=== PATIENT | male | born 1965 ===

== ENCOUNTER 2018-02-06 07:46 | Outpatient (CLI) | payer OTHER ==
--- NOTE | 2018-02-06 11:52 | Ultrasound Report ---
ULTRASOUND TESTICULAR DOPPLER COMPLETE History: Mass in right inguinal area, pain. Technique: Trans-scrotal ultrasound with spectral doppler interrogation. Findings: Targeted ultrasound was performed in the right inguinal area as well as the scrotum. Within the right inguinal area, there is suggestion of prominent subcutaneous fat which may represent a right inguinal hernia containing fat. No bowel loops with peristalsis is identified. Both testes and epididymides are normal size, contour and echotexture. No hydrocele or varicocele. No mass or pathologic calcifications. Doppler interrogation depicts symmetric arterial flow to both testes. IMPRESSION: Unremarkable testicular ultrasound. Right inguinal hernia containing fat? No bowel loops are appreciated within the right inguinal canal or right side of the scrotum.
== END 2018-02-06 07:47 | disposition home or self-care (01) ==
LOC: US 07:46
PROVIDERS: ATTEND Family Medicine
DX: R19.03 Right lower quadrant abdominal swelling, mass and lump (principal)
CPT/HCPCS: 93975